=== PATIENT | female | born 1960 | race Caucasian/White ===

== ENCOUNTER → 2023-08-11 13:29 | Outpatient (REF) | payer OTHER, SELFPAY | LOC: WDC 13:29 | PROVIDERS: ATTENDING PHYSICIAN Nurse Practitioner Family; FAMILY PHYSICIAN Family Medicine | DX: Z78.0 Asymptomatic menopausal state (principal); Z12.31 Encounter for screening mammogram for malignant neoplasm of breast; Z12.39 Encounter for other screening for malignant neoplasm of breast | CPT/HCPCS: 77063; 77067; 77080 ==

== ENCOUNTER 2023-12-13 14:20 | Outpatient (RCR) | payer OTHER, SELFPAY ==
[2023-12-06 13:56] VITALS: BP 117/77
[2023-12-06] MEDS: PEN VK 500 MG PO (13:59)
[2023-12-06 14:35] VITALS: BP 121/75
[2023-12-06] MEDS: BICILLIN LA 1200000 UNITS IM ×2 (14:48)
[2023-12-06 15:24] VITALS: BP 114/76
[2023-12-13] MEDS: BICILLIN LA 1200000 UNITS IM ×2 (14:33→14:34)
[2023-12-13 14:38] VITALS: BP 117/72
[2023-12-13 15:11] VITALS: BP 108/72
== END 2023-12-14 10:09 | disposition home or self-care (01) ==
LOC: OID 14:20
PROVIDERS: ATTENDING PHYSICIAN Internal Medicine Infectious Disease; FAMILY PHYSICIAN Nurse Practitioner Family
DX: A51.39 Other secondary syphilis of skin (principal)
CPT/HCPCS: 96372; J0561

== ENCOUNTER 2023-12-20 14:24 | Outpatient (RCR) | payer OTHER, SELFPAY ==
[2023-12-20 14:45] VITALS: BP 106/65
[2023-12-20] MEDS: BICILLIN LA 1200000 UNITS IM ×2 (14:59)
== END 2024-01-17 23:59 | disposition home or self-care (01) ==
LOC: OID 14:24
PROVIDERS: ATTENDING PHYSICIAN Internal Medicine Infectious Disease; FAMILY PHYSICIAN Nurse Practitioner Family
DX: A51.39 Other secondary syphilis of skin (principal)
CPT/HCPCS: 96372; J0561

== ENCOUNTER → 2024-01-08 06:31 | Day surgery (SDC) | payer OTHER, SELFPAY | LOC: GI 06:31 | PROVIDERS: ATTENDING PHYSICIAN Internal Medicine Gastroenterology | DX: Z12.11 Encounter for screening for malignant neoplasm of colon (principal); K64.8 Other hemorrhoids; K62.89 Other specified diseases of anus and rectum; Z83.719 Family history of colon polyps, unspecified | CPT/HCPCS: 45380; 88305 ==

== ENCOUNTER → 2024-08-12 18:41 | Outpatient (REF) | payer OTHER, SELFPAY | LOC: WDC 18:41 | PROVIDERS: ATTENDING PHYSICIAN Nurse Practitioner Family | DX: Z12.31 Encounter for screening mammogram for malignant neoplasm of breast (principal) | CPT/HCPCS: 77063; 77067 ==